=== PATIENT | male | born 1995 | race Caucasian/White ===

== ENCOUNTER → 2021-09-16 | Outpatient (CLI) | payer BC ==
--- NOTE | 2021-09-16 07:37 | US ---
EXAMINATION TYPE: US liver DATE OF EXAM: 09/16/2021 COMPARISON: NONE CLINICAL HISTORY: R74.01 elevation in lab values. elevated labs EXAM MEASUREMENTS: Liver Length: 11.6 cm Gallbladder Wall: 0.23 cm CBD: 0.34 cm Right Kidney: 10.8 x 5.1 x 4.9 cm Pancreas: Limited due to bowel gas Liver: Heterogeneous, increased attenuation Gallbladder: wnl Evidence for sonographic Ontiveros's sign: No CBD: wnl Right Kidney: wnl IMPRESSION: 1. Hepatic heterogeneity may reflect underlying hepatic steatosis.
[2021-09-16 11:23] LABS: Hepatitis A Antibody IgM Nonreactive (Nonreactive); Hepatitis B Core IgM Nonreactive (Nonreactive); Hepatitis B Surface Antigen Nonreactive (Nonreactive); Hepatitis C IgG Antibody Nonreactive (Nonreactive)
== END | disposition home or self-care (01) ==
LOC: RADUSWWP 06:58
PROVIDERS: ATTEND Internal Medicine
DX: K76.0 Fatty (change of) liver, not elsewhere classified (principal)
CPT/HCPCS: 76705; 80074